=== PATIENT | female | born 1975 | race Caucasian/White ===

== ENCOUNTER 2016-11-19 15:54 | Emergency (ER) | payer OTHER ==
[~2016-11-19] VITALS: Ht 157.5 cm; Wt 79.9 kg
[~2016-11-19 15:54] MED LIST: ATIVAN2 MG PO; IMITREX100 MG PO; TOPAMAX25 MG PO
[2016-11-19 16:38] LABS: microscopic required? YES; urine erythrocyte 2+ (NEGATIVE)
[2016-11-19 19:08] VITALS: BP 105/64
== END 2016-11-19 19:08 | disposition home or self-care (01) ==
LOC: ED 15:54
DX: J06.9 Acute upper respiratory infection, unspecified (principal); J40 Bronchitis, not specified as acute or chronic; R07.89 Other chest pain; H92.03 Otalgia, bilateral; J45.909 Unspecified asthma, uncomplicated; E11.9 Type 2 diabetes mellitus without complications; G43.909 Migraine, unspecified, not intractable, without status migrainosus; Z79.84 Long term (current) use of oral hypoglycemic drugs; Z79.891 Long term (current) use of opiate analgesic; Z79.899 Other long term (current) drug therapy
CPT/HCPCS: 36415; J1885; J7512; J7613; J7644

== ENCOUNTER 2017-06-12 11:44 | Emergency (ER) | payer OTHER ==
[~2017-06-12] VITALS: Ht 157.5 cm; Wt 76.3 kg
[2017-06-12 12:10] VITALS: Ht 157.5 cm; Wt 76.3 kg
[2017-06-12 16:35] LABS: UA SPECIFIC GRAVITY 1.015 (1.005-1.035); microscopic required? YES; urine erythrocyte 1+ (NEGATIVE)
[2017-06-12 16:45] LABS: LIPASE 139 IU/L (73-393)
[2017-06-12 19:52] VITALS: BP 113/74
== END 2017-06-12 19:52 | disposition home or self-care (01) ==
LOC: ED 11:44
PROVIDERS: Emergency Medicine
DX: N39.0 Urinary tract infection, site not specified (principal); E11.9 Type 2 diabetes mellitus without complications; J45.909 Unspecified asthma, uncomplicated
CPT/HCPCS: 36415; J1885; J2270

== ENCOUNTER 2017-06-20 19:20 | Emergency (ER) | payer OTHER ==
[~2017-06-20] VITALS: Ht 157.5 cm; Wt 78.0 kg
[2017-06-20 19:28] VITALS: Ht 157.5 cm; Wt 78.0 kg
[2017-06-21 01:00] VITALS: BP 147/92
== END 2017-06-21 01:00 | disposition home or self-care (01) ==
LOC: ED 19:20
DX: B34.9 Viral infection, unspecified (principal); J45.909 Unspecified asthma, uncomplicated; E11.9 Type 2 diabetes mellitus without complications; Z88.8 Allergy status to other drugs, medicaments and biological substances